=== PATIENT | female | born 1945 | race Caucasian/White ===

== ENCOUNTER 2017-03-09 13:00 | Outpatient (RCR) ==
--- NOTE | 2017-02-10 15:59 | RS.OPPTEV2 ---
Date of Note: 02/10/17 Visit #: 1 Date of Evaluation: 02/10/17 Payer Source: MEDICARE Date of Onset/Injury/Change in Status: 01/08/17 Treatment Diagnosis: Left knee pain History of Condition/Mechanism of Injury:: Patient had left TKA in 2010 with very good results with knee motion. She started having pain in the left knee approximately three weeks ago. Reports no known injury. Prior Level of Function.....Patient was independent with: ADL's, Self Care, Caregiving, Ambulation/Mobility, Community Integration/Access Functional Limitations: Sitting (prolonged), Standing, Ambulation Current Subjective/complaints:: Patient reports left knee pain. States she has some difficulty with stiffness after sitting too long. She does not feel like she has lost any range of motion in the knee. Reports mostly anterior knee pain. Describes an area of tenderness and swelling on the medial/anterior aspect of the knee joint. She just finished taking 10 days of prednisone, with no significant benefit. Reports she and her go to the gym twice a week. Treatment Side (optional): Left Medical History Surgical History: Knee Replacement (Left 2010), Tonsillectomy, Hysterectomy Smoking Status: Never smoker Patient's Goals: Her goal is to get relief of knee pain. Pain Assessment - Pain Description Pain Location: left knee pain Current Pain Intensity: 3/10 Worst Pain Intensity: not quantified Functional Outcome Measure LE Functional Scale: 71 (71/8=11.25% impairment) - G Codes & Severity Modifier G Codes & Modifier: Mobility current CI. Mobilty goal CH Source of G Code score: LE functional scale Observation - Observation Inspection: Left knee presents with puffiness over the medial condyle of the tibia. Gait - Gait Pattern Gait Comments: Patient ambulates without an assistive device. She demonstrates a mostly symmetrical gait pattern. Demonstrates slight decreased stance on the left LE following the evaluation. - Left Knee ROM Left Knee Extension: full extension Left Knee Flexion: 118 (degrees AROM) Comments: Patient reports slight discomfort with over pressure at end range. - Right Knee ROM Right Knee Extension: full extension Right Knee Flexion: 127 (degrees AROM) - Left Knee Strength Left Knee Extension: 4+ Good + Left Knee Flexion: 4 Good - Right Knee Strength Right Knee Extension: 5 Normal Right Knee Flexion: 5 Normal Palpation Comments:: Tenderness reported over the medial condyle of the left tibia. Reports no tenderness with palpation to the patellar or quad tendon. Sensation - Sensation Right Lower Extremity: Intact/Normal Left Lower Extremity: Intact/Normal Additional Comments: Additional Comments: Right Supine SLR to 60 degrees, Left supine SLR to 50-55 degrees. - Treatment Modality: Ultrasound Parameters/Method Applied: Pulsed at 20%, 1.0 w/cm2 X 9 mins over medial condyle of tibia. Patient Position: Supine Interventions - Exercise/Activities/Manual Therapy Exercises/Activities: Advised to let pain be her guide with exercises at the gym. No HEP at this time. Manual Therapy: Na - Charges Total Direct Minutes: 50 mins Total Treatment Time: 50 mins Procedures billed for this date of service:: JENN Rangel, US Assessment Assessment: Patient presents to therapy with a diagnosis of tendonitis s/p TKA. She reports knee pain with prolonged sitting or walking. She exhibits tenderness over the medial condyle of the tibia and slight decreased knee flexion. Her main deficit presents to be hamstring strength. She demonstrates good potential to get relief of knee pain with use of modalities to reduce inflammation, and strengthening of the HS to improve knee joint mechanics. Patient Education: Education of diagnosis, Body/Joint mechanics, Activity Modification, Education of Plan of Care Rehab Potential: Good Short Term Goals Goal #1: Pt independent in initial HEP. Goal to be met by: 02/24/17 Goal #2: Left Hamstring strength improved to 4+/5. Goal to be met by: 02/24/17 Goal #3: Tenderness over left medial condyle of tibia decreased to minimal. Goal to be met by: 02/24/17 Make Up Man Goals Goal #1: Pt knows HEP and to continue ex's to maintain functional level at D/C. Goal to be met by: 03/27/17 Goal #2: Pt will tolerate prolonged sitting/walking w/o knee discomfort. Goal to be met by: 03/27/17 Goal #3: Pt able to perform all previous recreational activities w/o left knee pain. Goal to be met by: 03/27/17 Plan - Treatment to be Provided Procedures: Therapeutic Exercises, Therapeutic Activity, Manual Therapy, Patient Education Modalities: Electrical Stimulation, Ultrasound/Phonophoresis (pulsed), Class IV Laser, Cryotherapy, Hot Packs - Treatment Plan Frequency: 2-3 X week Duration: 4 weeks ORDER # VISITS AND/OR THROUGH DATE: 03/27/17 - Treatment Code (1) Left knee pain Qualifiers: Chronicity: acute Qualified Description: Acute pain of left knee Qualifier Code(s): (M25.562) Pain in left knee (2) Presence of artificial knee joint Qualifiers: Laterality: left Qualified Description: Artificial knee joint present, left Qualifier Code(s): (Z96.652) Presence of left artificial knee joint
--- NOTE | 2017-02-11 15:38 | RS.OPPTDN ---
Subjective Date of Note: 02/11/17 Visit #: 2 Date of Evaluation: 02/10/17 Payer Source: MEDICARE Treatment Diagnosis: Left knee pain Current Subjective/complaints:: Reports she is still going to the gym,but is very aware of protecting the L knee. Pain Assessment - Pain Description Pain Location: left knee pain Pain Description: Dull, Aching Current Pain Intensity: not rated - Treatment Modality: Ultrasound Parameters/Method Applied: 10 mins. pulsed mode to L medial aspect of the knee. Patient Position: Supine - Heat/Cryotherapy Treatment: Cryotherapy (20 mins. prior to US and exercise) Interventions - Exercise/Activities/Manual Therapy Exercises/Activities: 15 mins. ankle pumps,QS,SLR's,standing hip flexion.Instructed to avoid excessive knee flexion such as squats. Total minutes of Exercise: 15 Manual Therapy: Na Total minutes of Manual Therapy: 0 - Charges Total Direct Minutes: 30 Total Treatment Time: 50 Procedures billed for this date of service:: cp,US,ex 1 Assessment: Tolerates exercises well,no increased pain .She understands the importance of exercising in open chain as much as possible,avoiding excessive knee flexion . Patient Education: Education of diagnosis, Body/Joint mechanics, Home Exercise Program, Home Safety, Activity Modification, Education of Plan of Care Patient demonstrates compliance with HEP?: Yes Short Term Goals Goal #1: Pt independent in initial HEP. Goal to be met by: 02/24/17 Progress towards Goal:: Progressing Goal #2: Left Hamstring strength improved to 4+/5. Goal to be met by: 02/24/17 Goal #3: Tenderness over left medial condyle of tibia decreased to minimal. Goal to be met by: 02/24/17 Senior Living Goals Goal #1: Pt knows HEP and to continue ex's to maintain functional level at D/C. Goal to be met by: 03/27/17 Progress towards goal: Progressing Goal #2: Pt will tolerate prolonged sitting/walking w/o knee discomfort. Goal to be met by: 03/27/17 Goal #3: Pt able to perform all previous recreational activities w/o left knee pain. Goal to be met by: 03/27/17 Plan PLAN OF CARE EXPIRES ON:: 03/27/17 ORDER # VISITS AND/OR THROUGH DATE: 03/27/17 PLAN: Continue Plan of Care
--- NOTE | 2017-02-16 15:35 | RS.OPPTDN ---
Subjective Date of Note: 02/16/17 Visit #: 3 Date of Evaluation: 02/10/17 Payer Source: MEDICARE Treatment Diagnosis: Left knee pain Current Subjective/complaints:: Patient reports the medail aspect of the L knee is dresser tender to touch,but no resting pain. Pain Assessment - Pain Description Pain Location: left knee pain Pain Description: Dull, Aching Current Pain Intensity: not rated - Treatment Modality: Ultrasound Parameters/Method Applied: 10 mins. pulsed @ 1.5 w/cm2 to medial aspect of the L knee. Patient Position: Supine - Heat/Cryotherapy Treatment: Cryotherapy (15 ins. after exercise and US) Interventions - Exercise/Activities/Manual Therapy Exercises/Activities: 30 mins. of 3 sets/15 reps. of ankle pumps,L hip abd / adduction with green theraband,SLR with 2#,quad sets, and SAQ's with 2#.Patient education for joint protection. Total minutes of Exercise: 30 Manual Therapy: Na Total minutes of Manual Therapy: 0 HOME EXERCISE PROGRAM: Ankle pumps,QS,SAQ,SLR,hip abd /adduction with knee in full extension. - Charges Total Direct Minutes: 30 Total Treatment Time: 55 Procedures billed for this date of service:: ex 2,cp,US Assessment: Patient reports fatigue and muscle aching as exercises progress today,but no increase in knee pain.She has good return demo of exercises,good understanding of joint protection. Patient Education: Education of diagnosis, Body/Joint mechanics, Home Exercise Program, Home Safety, Activity Modification, Education of Plan of Care Short Term Goals Goal #1: Pt independent in initial HEP. Goal to be met by: 02/24/17 Progress towards Goal:: Progressing Goal #2: Left Hamstring strength improved to 4+/5. Goal to be met by: 02/24/17 Goal #3: Tenderness over left medial condyle of tibia decreased to minimal. Goal to be met by: 02/24/17 Catering Assistant Goals Goal #1: Pt knows HEP and to continue ex's to maintain functional level at D/C. Goal to be met by: 03/27/17 Progress towards goal: Progressing Goal #2: Pt will tolerate prolonged sitting/walking w/o knee discomfort. Goal to be met by: 03/27/17 Progress towards goal: Progressing Goal #3: Pt able to perform all previous recreational activities w/o left knee pain. Goal to be met by: 03/27/17 Plan PLAN OF CARE EXPIRES ON:: 03/27/17 ORDER # VISITS AND/OR THROUGH DATE: 03/27/17 PLAN: Continue Plan of Care
--- NOTE | 2017-02-18 15:18 | RS.OPPTDN ---
Subjective Date of Note: 02/18/17 Visit #: 4 Date of Evaluation: 02/10/17 Payer Source: MEDICARE Treatment Diagnosis: Left knee pain Current Subjective/complaints:: No c/o. Pain Assessment - Pain Description Pain Location: left knee pain Pain Description: Dull, Aching Current Pain Intensity: not rated - Treatment Modality: Ultrasound Parameters/Method Applied: 10 mins. @ 1.5 w/cm2 and 50 % pulsed to medial aspect of the L knee. Patient Position: Supine - Heat/Cryotherapy Treatment: Cryotherapy (20 mins. after UE and exercises) Interventions - Exercise/Activities/Manual Therapy Exercises/Activities: 30 mins. of 3 sets/15 reps. of ankle pumps,L hip abd / adduction with green theraband,SLR with 3#,quad sets, and SAQ's with 3#.4 point quads x 10 reps.SLR's with L LE exteranly rotated for VMO,5 reps x 4 sets. Total minutes of Exercise: 30 Manual Therapy: Na Total minutes of Manual Therapy: 0 HOME EXERCISE PROGRAM: Ankle pumps,QS,SAQ,SLR,hip abd /adduction with knee in full extension. - Charges Total Direct Minutes: 40 Total Treatment Time: 60 Procedures billed for this date of service:: US,ex 2,cp Patient Education: Education of diagnosis, Body/Joint mechanics, Home Exercise Program, Home Safety, Activity Modification, Education of Plan of Care Patient demonstrates compliance with HEP?: Yes Short Term Goals Goal #1: Pt independent in initial HEP. Goal to be met by: 02/24/17 Progress towards Goal:: Progressing Goal #2: Left Hamstring strength improved to 4+/5. Goal to be met by: 02/24/17 Progress towards Goal:: Progressing Goal #3: Tenderness over left medial condyle of tibia decreased to minimal. Goal to be met by: 02/24/17 Progress towards Goal:: No Change Account Relationship Manager Goals Goal #1: Pt knows HEP and to continue ex's to maintain functional level at D/C. Goal to be met by: 03/27/17 Progress towards goal: Progressing Goal #2: Pt will tolerate prolonged sitting/walking w/o knee discomfort. Goal to be met by: 03/27/17 Progress towards goal: Progressing Goal #3: Pt able to perform all previous recreational activities w/o left knee pain. Goal to be met by: 03/27/17 Plan PLAN OF CARE EXPIRES ON:: 03/27/17 ORDER # VISITS AND/OR THROUGH DATE: 03/27/17 PLAN: Continue Plan of Care
--- NOTE | 2017-02-23 11:58 | RS.CXNS ---
Date of scheduled appointment: 02/23/17 Type: Cancel Reason for Cancel/NS: Called ,has schedule conflict,needs to be at home.
--- NOTE | 2017-02-25 15:24 | RS.OPPTDN ---
Subjective Date of Note: 02/25/17 Visit #: 5 Date of Evaluation: 02/10/17 Payer Source: MEDICARE Treatment Diagnosis: Left knee pain Current Subjective/complaints:: Patient reports climbing stairs has made her knees hurt more,but does feel the therapy is helping her. Pain Assessment - Pain Description Pain Location: left knee pain Pain Description: Dull, Aching Current Pain Intensity: not rated Other Comments regarding Pain:: muscle soreness - Treatment Modality: Ultrasound Parameters/Method Applied: 10 mins. @ 1.5 w/cm2,50% pulsed to L knee. Patient Position: Supine - Heat/Cryotherapy Treatment: Cryotherapy (20 mis. after exercise) Interventions - Exercise/Activities/Manual Therapy Exercises/Activities: 30 mins. of 3 sets/15 reps. on leg press @ 30 # , 45 # ,1 set of 15 @ 60 #.Heel cord stretches using foot plate on leg press.HEP review. Total minutes of Exercise: 30 Manual Therapy: Na Total minutes of Manual Therapy: 0 HOME EXERCISE PROGRAM: Ankle pumps,QS,SAQ,SLR,hip abd /adduction with knee in full extension. - Charges Total Direct Minutes: 40 Total Treatment Time: 60 Procedures billed for this date of service:: US,ex 2,cp Assessment: Patient tolerates PRE's well,with report of fatigue only,no sharp pain reported in the knees.She ahs good understanding of HEP,as she goes to a gym on a regular basis normally.She is less tender to paplate the medial aspect of the L knee. Patient Education: Body/Joint mechanics, Home Exercise Program, Home Safety, Activity Modification, Education of Plan of Care Patient demonstrates compliance with HEP?: Yes Short Term Goals Goal #1: Pt independent in initial HEP. Goal to be met by: 02/24/17 Progress towards Goal:: Progressing Goal #2: Left Hamstring strength improved to 4+/5. Goal to be met by: 02/24/17 Progress towards Goal:: Progressing Goal #3: Tenderness over left medial condyle of tibia decreased to minimal. Goal to be met by: 02/24/17 Progress towards Goal:: Progressing Custodial Goals Goal #1: Pt knows HEP and to continue ex's to maintain functional level at D/C. Goal to be met by: 03/27/17 Progress towards goal: Progressing Goal #2: Pt will tolerate prolonged sitting/walking w/o knee discomfort. Goal to be met by: 03/27/17 Progress towards goal: Progressing Goal #3: Pt able to perform all previous recreational activities w/o left knee pain. Goal to be met by: 03/27/17 Progress towards goal: Progressing Plan PLAN OF CARE EXPIRES ON:: 03/27/17 ORDER # VISITS AND/OR THROUGH DATE: 03/27/17 PLAN: Progress Exercises
--- NOTE | 2017-03-02 15:22 | RS.OPPTDN ---
Subjective Date of Note: 03/02/17 Visit #: 6 Date of Evaluation: 02/10/17 Payer Source: MEDICARE Treatment Diagnosis: Left knee pain Current Subjective/complaints:: Patient reports both knees were sore after doing leg press exercises last session,but no pain today.We discussed doing only the L LE exercises today. Pain Assessment - Pain Description Pain Location: left knee pain,medial aspect of the proximal tibia Pain Description: Dull, Aching Pain Description: soreness Current Pain Intensity: not rated - Treatment Modality: Ultrasound Parameters/Method Applied: 10 mins. @ 1.5 w/cm2 ,50 % pulsed to medial aspect of. L knee Patient Position: Supine - Heat/Cryotherapy Treatment: Cryotherapy Interventions - Exercise/Activities/Manual Therapy Exercises/Activities: 35 mins. of 3 sets/15 reps. of L LE leg press @ 15# ,30#, 45 # ,preceded by supine resistive knee flex/ext,abd/adduction.HEP review. Total minutes of Exercise: 35 Manual Therapy: Na Total minutes of Manual Therapy: 0 HOME EXERCISE PROGRAM: Ankle pumps,QS,SAQ,SLR,hip abd /adduction with knee in full extension. - Charges Total Direct Minutes: 45 Total Treatment Time: 55 Procedures billed for this date of service:: US,ex 2,cp Assessment: Patient continues to progress well.She has improved quad and hamstring strength,good understanding of HEP.She continues to be tender to palpate the medial aspect of the L knee,but less tender after modalities. Patient Education: Education of Plan of Care Patient demonstrates compliance with HEP?: Yes Short Term Goals Goal #1: Pt independent in initial HEP. Goal to be met by: 02/24/17 Progress towards Goal:: Partially Met Goal #2: Left Hamstring strength improved to 4+/5. Goal to be met by: 02/24/17 Progress towards Goal:: Progressing Goal #3: Tenderness over left medial condyle of tibia decreased to minimal. Goal to be met by: 02/24/17 Progress towards Goal:: Progressing Director Of Science Goals Goal #1: Pt knows HEP and to continue ex's to maintain functional level at D/C. Goal to be met by: 03/27/17 Progress towards goal: Progressing Goal #2: Pt will tolerate prolonged sitting/walking w/o knee discomfort. Goal to be met by: 03/27/17 Progress towards goal: Progressing Goal #3: Pt able to perform all previous recreational activities w/o left knee pain. Goal to be met by: 03/27/17 Progress towards goal: Progressing Plan PLAN OF CARE EXPIRES ON:: 03/27/17 ORDER # VISITS AND/OR THROUGH DATE: 03/27/17 PLAN: Progress Exercises
--- NOTE | 2017-03-04 15:29 | RS.OPPTDN ---
Subjective Date of Note: 03/04/17 Visit #: 7 Date of Evaluation: 02/10/17 Payer Source: MEDICARE Treatment Diagnosis: Left knee pain Current Subjective/complaints:: Reports the L knee is better today,but blister packing machine tender to toch the medial joint line. Pain Assessment - Pain Description Pain Location: left knee pain,medial aspect of the proximal tibia Pain Description: Dull, Aching Pain Description: soreness Current Pain Intensity: not rated - Treatment Modality: Ultrasound Parameters/Method Applied: 10 mins. pulsed 50 % to L knee @ 1.5 w/cm2. Patient Position: Supine - Heat/Cryotherapy Treatment: Cryotherapy (15 mmins. after exercises) Interventions - Exercise/Activities/Manual Therapy Exercises/Activities: 30 mins. of 3 sets/15 reps. of L LE leg press @ 15# ,30#, 45 # .One set x 15 of mini-squats with therapy ball on wall. Total minutes of Exercise: 30 Manual Therapy: Na Total minutes of Manual Therapy: 0 HOME EXERCISE PROGRAM: Ankle pumps,QS,SAQ,SLR,hip abd /adduction with knee in full extension. - Charges Total Direct Minutes: 40 Total Treatment Time: 55 Procedures billed for this date of service:: US,ex ,cp Assessment: Fredis reports more dsicomfort with closed chain motions as opposed to supine or sitting .She has functional motion in the L knee.She has improved awareness of avoiding multiple reps. of closed chain vs. open chain exercises. Patient Education: Education of Plan of Care Patient demonstrates compliance with HEP?: Yes Short Term Goals Goal #1: Pt independent in initial HEP. Goal to be met by: 02/24/17 Progress towards Goal:: Partially Met Goal #2: Left Hamstring strength improved to 4+/5. Goal to be met by: 02/24/17 Progress towards Goal:: Partially Met Goal #3: Tenderness over left medial condyle of tibia decreased to minimal. Goal to be met by: 02/24/17 Progress towards Goal:: Progressing Snf Goals Goal #1: Pt knows HEP and to continue ex's to maintain functional level at D/C. Goal to be met by: 03/27/17 Progress towards goal: Partially Met Goal #2: Pt will tolerate prolonged sitting/walking w/o knee discomfort. Goal to be met by: 03/27/17 Progress towards goal: Partially Met Goal #3: Pt able to perform all previous recreational activities w/o left knee pain. Goal to be met by: 03/27/17 Progress towards goal: Partially Met Plan PLAN OF CARE EXPIRES ON:: 03/27/17 ORDER # VISITS AND/OR THROUGH DATE: 03/27/17 PLAN: Continue Plan of Care
--- NOTE | 2017-03-09 14:09 | RS.OPPTDN ---
Subjective Date of Note: 03/09/17 Visit #: 8 Date of Evaluation: 02/10/17 Payer Source: MEDICARE Treatment Diagnosis: Left knee pain Current Subjective/complaints:: Patient pleased with her progress,agrees with D/ c plan todayShe reports feeling stronger in the L knee area,and safer on stairs. Pain Assessment - Pain Description Pain Location: left knee pain,medial aspect of the proximal tibia Pain Description: Dull, Aching Pain Description: soreness Current Pain Intensity: not rated - Treatment Modality: Ultrasound Parameters/Method Applied: 10 mins. ,50% pulsed to medail aspect of L knee. Patient Position: Supine Interventions - Exercise/Activities/Manual Therapy Exercises/Activities: 20 mins. of HEP review,joint protection. Total minutes of Exercise: 20 Manual Therapy: Na Total minutes of Manual Therapy: 0 HOME EXERCISE PROGRAM: Ankle pumps,QS,SAQ,SLR,hip abd /adduction with knee in full extension. - Charges Total Direct Minutes: 30 Total Treatment Time: 30 Procedures billed for this date of service:: US,ex Assessment: Patient progressed well,has met rehab goals ,good understanding of hEP and joint care. Patient Education: Education of diagnosis, Body/Joint mechanics, Home Exercise Program, Home Safety, Activity Modification, Education of Plan of Care Patient demonstrates compliance with HEP?: Yes Short Term Goals Goal #1: Pt independent in initial HEP. Goal to be met by: 02/24/17 Progress towards Goal:: Met Goal #2: Left Hamstring strength improved to 4+/5. Goal to be met by: 02/24/17 Progress towards Goal:: Met Goal #3: Tenderness over left medial condyle of tibia decreased to minimal. Goal to be met by: 02/24/17 Progress towards Goal:: Met Community Support Associate Goals Goal #1: Pt knows HEP and to continue ex's to maintain functional level at D/C. Goal to be met by: 03/27/17 Progress towards goal: Met Goal #2: Pt will tolerate prolonged sitting/walking w/o knee discomfort. Goal to be met by: 03/27/17 Progress towards goal: Met Goal #3: Pt able to perform all previous recreational activities w/o left knee pain. Goal to be met by: 03/27/17 Progress towards goal: Met Plan PLAN OF CARE EXPIRES ON:: 03/27/17 ORDER # VISITS AND/OR THROUGH DATE: 03/27/17 PLAN: Plan for Discharge
== END 2017-03-10 ==
PROVIDERS: ATTEND Orthopaedic Surgery
DX: M17.12 Unilateral primary osteoarthritis, left knee (principal); M76.52 Patellar tendinitis, left knee; Z96.652 Presence of left artificial knee joint

== ENCOUNTER 2017-08-17 10:17 | Outpatient (CLI) | END 2017-08-17 10:18 | disposition home or self-care (01) | LOC: RAD 10:17 | PROVIDERS: ATTEND Internal Medicine | DX: Z12.31 Encounter for screening mammogram for malignant neoplasm of breast (principal) | CPT/HCPCS: 77067 ==

== ENCOUNTER 2018-08-23 09:00 | Outpatient (CLI) ==
--- NOTE | 2018-08-23 10:22 | MAMMO ---
EXAM: Bilateral digital screening mammogram (2-D and 3-D) History: Screening Comparison: Bilateral mammogram 08/17/2017 Findings: MLO and CC views of bilateral breasts demonstrate scattered fibroglandular breast parenchy ma. CAD was reviewed by the radiologist. Tomosynthesis was performed. Stable benign bilateral tressa st calcifications. There are no dominant masses, no suspicious microcalcifications and no architectu ral distortions Impression: Benign stable mammogram. Recommend followup routine screening mammography in 1 year. BIRADS 2, benign
== END 2018-08-23 09:01 | disposition home or self-care (01) ==
LOC: RAD 09:00
PROVIDERS: ATTEND Internal Medicine
DX: Z12.31 Encounter for screening mammogram for malignant neoplasm of breast (principal)

== ENCOUNTER 2018-10-11 11:59 | Outpatient (CLI) | payer OTHER ==
--- NOTE | 2018-10-11 13:40 | DI ---
EXAM: CHEST FRONTAL AND LATERAL VIEWS HISTORY: Cough. COMPARISON: None FINDINGS: Heart size and mediastinal contour within normal limits. No acute infiltrates. Rosario l vascularity with no pleural fluid or pneumothorax. The bony thorax has no acute finding. IMPRESSION: No acute process.
== END 2018-10-11 12:00 | disposition home or self-care (01) ==
LOC: RAD 11:59
PROVIDERS: ATTEND Internal Medicine
DX: R05 Cough (principal)